=== PATIENT | male | born 1960 | race Caucasian/White ===

== ENCOUNTER 2020-06-07 08:01 | Day surgery (SDC) | payer BC ==
[2020-06-03 08:59] VITALS: BMI 24.9
[~2020-06-07 08:01] MED LIST: LACTATED RINGERS 1,000 ML IV SCH
[2020-06-07 08:34] VITALS: RESP 16; TEMP 97.8
[2020-06-07] MEDS ORDERED: LIDOCAINE 1% (10MG/ML) FOR IV START INTRADERMA ONE (08:49)
[2020-06-07] MEDS ORDERED: PROPOFOL 10 MG/ML 20 ML VIAL IV ONE (08:58)
--- NOTE | 2020-06-07 09:33 | P.PCN ---
Date of Procedure: 06/07/20 Description of Procedure: BRIEF HISTORY: Patient is a 59-year-old male presenting for outpatient colonoscopy for evaluation of other specified diseases of the anus and rectum. 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 Family history of colon cancer in his father. PROCEDURE PERFORMED: Colonoscopy with biopsy. PREOPERATIVE DIAGNOSIS: Other specified diseases of the anus rectum, last colonoscopy in 2016. ESTIMATED BLOOD LOSS: Minimal. IV sedation per Anesthesia. PROCEDURE: After informed consent was obtained, the patient, was brought into the endoscopy unit. IV sedation was administered by Anesthesia under continuous monitoring. Digital rectal examination was normal. Initially the Olympus CF-190 flexible video colonoscope was then inserted in the rectum, gradually advanced into the cecum without any difficulty. Careful examination was performed as the scope was gradually being withdrawn. Ileocecal valve and the appendiceal orifice were visualized and appeared normal. Prep was excellent. Mucosa of the cecum, ascending colon, transverse colon, descending colon, sigmoid colon, and rectum appeared normal, with biopsies taken of the right colon, transverse colon, left colon and rectum as well as a normal-appearing terminal ileum. Retroflexion was performed in the rectum and no lesions were seen. The patient tolerated the procedure well. IMPRESSION: Normal-appearing colon from rectum to cecum and normal-appearing terminal ileum with random biopsies taken of the terminal ileum, right colon, transverse colon, left colon and rectum. RECOMMENDATIONS: Findings of this examination were discussed with the patient. Okay to resume d iet. Okay to resume medications. We pathology from biopsies. Follow up in the GI clinic as scheduled.
[2020-06-07 10:04] VITALS: BP 128/80; PULSE 62
== END 2020-06-07 10:12 | disposition home or self-care (01) ==
LOC: ORWHC2ENDO 08:01
PROVIDERS: ATTEND Internal Medicine
DX: K62.89 Other specified diseases of anus and rectum (principal); K51.20 Ulcerative (chronic) proctitis without complications; Z80.0 Family history of malignant neoplasm of digestive organs; I10 Essential (primary) hypertension; E78.5 Hyperlipidemia, unspecified; Z88.0 Allergy status to penicillin; Z79.899 Other long term (current) drug therapy
CPT/HCPCS: 88305; 45380; J2704

== ENCOUNTER 2024-06-09 09:51 | Day surgery (SDC) | payer BC ==
[2024-06-05 15:44] VITALS: BMI 23.7
[2024-06-09 10:18] VITALS: TEMP 97.1
[2024-06-09] MEDS: IV FLUID CONTINUATION 1,000 ML IV ONE (10:20)
[2024-06-09] MEDS: LACTATED RINGERS 1,000 ML IV SCH (10:20)
[2024-06-09] MEDS: LIDOCAINE 1% (10MG/ML) FOR IV START INTRADERMA STA (10:20)
[2024-06-09] MEDS ORDERED: PROPOFOL 10 MG/ML 20 ML VIAL IV ONE (11:41)
--- NOTE | 2024-06-09 11:54 | P.PCN ---
Date of Procedure: 06/09/24 Procedure(s) Performed: BRIEF HISTORY: Patient is a 62-year-old pleasant white male scheduled for an elective colonoscopy as a part of screening for colon cancer and family history of colon cancer. His father was diagnosed with colon cancer at age 70. PROCEDURE PERFORMED: Colonoscopy. PREOPERATIVE DIAGNOSIS: Screening for colon cancer and family history of colon cancer. IV sedation per Anesthesia. PROCEDURE: After informed consent was obtained, the patient, was brought into the endoscopy unit. IV sedation was administered by Anesthesia under continuous monitoring. Digital rectal examination was normal. Initially the Olympus CF-160 flexible video colonoscope was then inserted in the rectum, gradually advanced into the cecum without any difficulty. Careful examination was performed as the scope was gradually being withdrawn. Ileocecal valve and the appendiceal orifice were visualized and appeared normal. Prep was fair.. Mucosa of the cecum, ascending colon, transverse colon, descending colon, sigmoid colon, and rectum appeared normal. Retroflexion was performed in the rectum and no lesions were seen. The patient tolerated the procedure well. IMPRESSION: Normal-appearing colon from rectum to cecum no evidence of colorectal neoplasia. RECOMMENDATIONS: Findings of this examination were discussed with the patient as well as his family. He was advised to have repeat screening colonoscopy in 5 years because of the family history of colon cancer.
[2024-06-09 12:05] VITALS: RESP 14
[2024-06-09 12:30] VITALS: BP 147/88; PULSE 57
== END 2024-06-09 12:40 | disposition home or self-care (01) ==
LOC: ORWHC2ENDO 09:51
PROVIDERS: ATTEND Internal Medicine Gastroenterology
DX: Z12.11 Encounter for screening for malignant neoplasm of colon (principal); I10 Essential (primary) hypertension; E78.5 Hyperlipidemia, unspecified; F10.90 Alcohol use, unspecified, uncomplicated; F12.90 Cannabis use, unspecified, uncomplicated; K51.90 Ulcerative colitis, unspecified, without complications; Z80.0 Family history of malignant neoplasm of digestive organs; Z79.899 Other long term (current) drug therapy; Z98.890 Other specified postprocedural states
CPT/HCPCS: 45378; J2704